=== PATIENT | male | born 1980 | race Caucasian/White ===

== ENCOUNTER 2017-09-08 08:06 | Emergency (ER) | payer MEDICAID ==
[~2017-09-08] VITALS: Ht 193 cm; Wt 90.7 kg
[~2017-09-08 08:06] MED LIST: ALBU18 IN; BACL10TA PO; DOXY-111 PO; GABA300C11 PO; IBUP100S11 PO; IPRASOL39 NEB; LITH300C3 PO; METH4PAK PO; QUET200T3 PO
[2017-09-08 08:25] VITALS: BP 129/84
[2017-09-08] MEDS ORDERED: KETOROLAC TROMETH 60MG/2ML VIAL IM ONE (08:30)
== END 2017-09-08 09:08 | disposition home or self-care (01) ==
LOC: ER 08:06
DX: K08.89 Other specified disorders of teeth and supporting structures (principal); G89.29 Other chronic pain; J44.9 Chronic obstructive pulmonary disease, unspecified; I50.9 Heart failure, unspecified; E78.5 Hyperlipidemia, unspecified; Z88.8 Allergy status to other drugs, medicaments and biological substances; F17.210 Nicotine dependence, cigarettes, uncomplicated; Z87.891 Personal history of nicotine dependence
CPT/HCPCS: 96372; 99283; J1885